=== PATIENT | male | born 1950 | race Caucasian/White ===

== ENCOUNTER → 2017-07-05 | Outpatient (CLI) | payer OTHER ==
[2015-11-29 14:09] VITALS: BMI 22.4
[~2017-07-05] MED LIST: ALPR-1 PO; ASPI-1471 PO; Alprazolam PO; HYDR-2966 PO; LOSA25TA50 PO; RIVA20TA PO; SOT80 PO
[2017-07-05 08:21] LABS: PLATELET COUNT, AUTOMATED 269 K/uL (150-450)
[2017-07-05 09:02] LABS: LDL CHOLESTEROL 92 mg/dl
== END ==
LOC: LAB 07:58
PROVIDERS: ATTEND Internal Medicine
DX: Z12.5 Encounter for screening for malignant neoplasm of prostate (principal); E11.9 Type 2 diabetes mellitus without complications; I71.2 Thoracic aortic aneurysm, without rupture; I10 Essential (primary) hypertension
CPT/HCPCS: 36415; 81001; 82040; 82247; 82310; 82374; 82435; 82465; 82565; 82947; 83036; 83718; 84075; 84132; 84153; 84155; 84295; 84443; 84450; 84460; 84478; 84520; 85025

== ENCOUNTER → 2017-10-12 | Outpatient (CLI) | payer OTHER ==
[2015-11-29 14:09] VITALS: BMI 22.4
[~2017-10-12] MED LIST changes: +AMLO-96 PO; +ATEN-65 PO
--- NOTE | 2017-10-12 11:54 | EKG ---
FACILITY: [facility] PATIENT NAME: LIONEL SALOMON : [id number] MR: [id number] V: [id number] EXAM DATE: ORDERING PHYSICIAN: JENS FERNANDEZ TECHNOLOGIST: CLAUDIA Campos Reason : CHEST PAIN Blood Pressure : / mmHG Vent. Rate : 075 BPM Atrial Rate : 075 BPM P-R Int : 162 ms QRS Dur : 086 ms QT Int : 382 ms P-R-T Axes : 059 063 068 degrees QTc Int : 426 ms Normal sinus rhythm Normal ECG No previous ECGs available Confirmed by JENS FERNANDEZ ([id number]) on 10/13/2017 4:24:38 PM Referred By: Confirmed By:JENS FERNANDEZ
== END ==
LOC: RESP 11:40
PROVIDERS: ATTEND Internal Medicine
DX: Z02.9 Encounter for administrative examinations, unspecified (principal)

== ENCOUNTER → 2017-12-02 | Outpatient (CLI) | payer OTHER ==
[2015-11-29 14:09] VITALS: BMI 22.4
[~2017-12-02] MED LIST changes: +AMLO-111 PO; -AMLO-96 PO; +IOPAMIDOL 76% 75 ML INFUS BTL 75 ML ONE; -LOSA25TA50 PO; +LOSA25TA52 PO; +NS(*) 0.9% 50 ML BAG 50 ML ONE
--- NOTE | 2017-12-02 16:44 | RADIOLOGY IMAGING REPORT ---
FACILITY: [facility] [place] PATIENT NAME: Seymour Lind : 1950 MR: [id number] V: [id number] EXAM DATE: ORDERING PHYSICIAN: JENS FERNANDEZ TECHNOLOGIST: Location: [facility] [place] Patient: Seymour Lind : 1950 Visit/Account:[id number] Date of Sevice: 12/02/2017 CTA CHEST WW/O CNTR (PULM ANG) Provided history: see dx code Additional pertinent history: Follow-up thoracic aortic aneurysm TECHNIQUE: Thoracic aorta protocol: A preliminary non-IV enhanced series obtained through the chest. Bolus thin section axial scans were obtained during maximal arterial opacification through the chest . Reconstruction of the source data set includes multiplanar 2D in the sagittal and coronal planes, a nd 3D coronal thin slab MIP series. Sales And Marketing Engineer images have been stored on PACS. EKG gating: yes Contrast: 75 ml Isovue 370 One of the following dose optimization techniques was utilized in the performance of this exam: Autom ated exposure control; adjustment of the mA and/or kV according to the patient's size; or use of an i terative reconstruction technique. Specific details can be referenced in the facility's radiology C T exam operational policy. COMPARISON STUDIES: 12/08/16 FINDINGS: Angiographic findings: Thoracic aorta: Aortic valve is tricuspid without cusp thickening or calcification. Reidentified is a fusiform aneurysm ascending segment reaching maximal diameter 4.6 x 4.5 cm, unchang ed on remeasurement of prior. Tapers in the upper ascending segment and arch. Descending thoracic aor ta measures 2.5 x 2.5 cm. There is no dissection. Precontrast series redemonstrates no intramural hem atoma. Branch vessels: negative Pulmonary arteries: This exam is not designed for assessment of the pulmonary arteries. There is in sufficient opacification of the central and peripheral pulmonary arteries to exclude emboli.. Additional non-angiographic findings: Lower neck: negative Lungs / pleura / zahra: negative Mediastinum: negative Heart / pericardium: negative Other Vessels: negative Body wall: negative Upper abdomen: Moderate tortuosity of the upper abdominal aorta. Normal origin of proximal course of the celiac, SMA and renal arteries. 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 No diss ection or intraluminal hematoma. Report Dictated By: mUer Castillo MD at 12/02/2017 4:31 PM Report E-Signed By: Umer Castillo MD at 12/02/2017 4:40 PM WSN:[id number]
== END ==
LOC: CT 01:20
PROVIDERS: ATTEND Internal Medicine
DX: I71.2 Thoracic aortic aneurysm, without rupture (principal); R07.9 Chest pain, unspecified; I10 Essential (primary) hypertension
CPT/HCPCS: 71275; 82565; J7050; Q9967; 36415

== ENCOUNTER → 2018-07-18 | Outpatient (CLI) | payer OTHER ==
[2015-11-29 14:09] VITALS: BMI 22.4
[~2018-07-18] MED LIST changes: -AMLO-111 PO; +AMLO-125 PO; -IOPAMIDOL 76% 75 ML INFUS BTL 75 ML ONE; -LOSA25TA52 PO; +LOSA25TA57 PO; -NS(*) 0.9% 50 ML BAG 50 ML ONE; +PNEU0.5D3 IM
[2018-07-18 09:11] LABS: PLATELET COUNT, AUTOMATED 274 K/uL (150-450)
[2018-07-18 09:31] LABS: LDL CHOLESTEROL 104 mg/dl
== END ==
LOC: LAB 08:50
PROVIDERS: ATTEND Internal Medicine
DX: Z00.00 Encounter for general adult medical examination without abnormal findings (principal); G47.33 Obstructive sleep apnea (adult) (pediatric); I71.2 Thoracic aortic aneurysm, without rupture; I49.5 Sick sinus syndrome; I48.91 Unspecified atrial fibrillation; I10 Essential (primary) hypertension
CPT/HCPCS: 36415; 81001; 82040; 82247; 82310; 82374; 82435; 82465; 82565; 82947; 83718; 84075; 84132; 84153; 84155; 84295; 84443; 84450; 84460; 84478; 84520; 85025